=== PATIENT | male | born 1950 | race Caucasian/White ===

== ENCOUNTER 2023-07-29 20:13 | Emergency (ER) | payer MEDICARE, OTHER, SELFPAY ==
[2023-07-29 20:13] VITALS: BMI 32.0
[2023-07-29 20:29] VITALS: BP 166/97
[2023-07-29 20:41] LABS: % Basophils 0.5 % (0-2); % Eosinophils 1.3 % (0-6); % Immature Granulocytes 0.4 % (0-0.5); % Lymphocytes 23.8 % (20.5-51.1); % Monocytes 7.9 % (1.7-9.3); % Neutrophils 66.1 % (42.2-75.2); Absolute Eosinophils 0.1 10^3/uL (0-0.7); Absolute Monocytes 0.7 10^3/uL (0.1-0.6); Absolute Neutrophils 5.6 10^3/uL (1.4-6.5); Hematocrit 42.3 % (39.0-52.0); Hemoglobin 14.8 g/dL (13.0-18.0); Mean Corpuscular Hgb 32.3 pg (27.0-31.0); Mean Corpuscular Volume 92.4 fL (80.0-94.0); Mean Platelet Volume 9.4 fL (7.4-10.4); Nucleated Red Blood Cells % 0 % (-); Platelet Count 171 10^3/uL (130-400); Red Blood Cell Count 4.58 10^6/uL (4.70-6.10); Red Cell Dist. Width 13.1 % (11.5-14.5); White Blood Cell Count 8.4 10^3/uL (4.8-10.8)
[2023-07-29 21:03] LABS: ALT (SGPT) 26 U/L (0-50); Alkaline Phosphatase 50 U/L (38-126); Blood Urea Nitrogen 21 mg/dl (9-20); Calcium 9.5 mg/dl (8.4-10.2); Carbon Dioxide 30 mmol/L (22-30); Chloride 98 mmol/L (98-107); Glucose 124 mg/dl (70-99); Potassium 3.9 mmol/L (3.5-5.1); Sodium 136 mmol/L (135-145); Total Bilirubin 0.8 mg/dl (0.2-1.3); Total Protein 6.3 g/dl (6.3-8.2); eGFR > 60.00
[2023-07-29 21:05] LABS: AST (SGOT) 25 U/L (17-59)
[2023-07-29 21:06] LABS: Troponin I < 0.012 ng/ml
[2023-07-29 23:32] VITALS: BP 159/81
[2023-07-30 00:26] LABS: Troponin I < 0.012 ng/ml
--- NOTE | 2023-07-30 02:00 | ED.GENMED ---
History of Present Illness
General
Chief Complaint: Chest Problem
Source: patient and spouse
Exam Limitations: none
Time Seen by Provider: 07/29/23 23:31
Nursing documentation reviewed up to this point in time: agreed with
Travel History
Have you had any contact with someone who has COVID-19?: No
Do you have any symptoms of coronavirus? Fever > 100 degrees, chills, cough, shortness of breath, sore throat, loss of taste or smell, muscle aches, or headache?: No
History of Present Illness
History of Present Illness:
73-year-old male with medical history of hypertension hyperlipidemia, thyroid disorder presenting to the emergency department today with concerns of intermittent palpitation chest discomfort over the past few days. Denies any specific inciting
events or specific known palliation or provocation. Denies any ongoing symptoms during my assessment. Denies nausea vomiting diaphoresis.
Past History
Past History
ED Past Medical History: Asthma, HTN, Hypercholesterolemia, Hypothyroidism and Other (Budging disc, Diverticulitis, Renal calculis, UTI)
ED Past Surgical History: Orthopedic (L Knee surgery Apr 2014, lumbar laminectomy, Right knee replacement, Cl lateral carpal tunnel release) and Other (Back surgery)
Social History
Tobacco: Non-smoker
Alcohol: Daily (Beer 2)
Drug: None
Personal:
Living: with family
Family History
Family History: Other
Review of Systems
Review of Systems
Allergies reviewed?: Yes
All Other Systems: ROS reviewed and negative except as documented in HPI and ROS
Phy Exam
Physical Exam
Physical Exam:
GENERAL: Alert , in no apparent distress
EYE: pupils equal and reactive
NECK: Supple, no significant adenopathy.
ENT: o/p clr, mmm.
CARDIAC: Regular rate and rhythm .
LUNGS: Clear breath sounds bilaterally, no acute respiratory distress, no wheezes/rales/rhonchi
ABDOMEN: Soft, without focal tenderness, no r/g, no cvat
NEUROLOGICAL: Alert and oriented, no focal neuro deficits
SKIN: Warm and dry, skin intact.
MUSCULOSKELETAL: No edema, well perfused.
PSYCH: Normal and appropriate interaction.
Course
Orders/Labs/Results
Orders:
Orders
07/29/23 20:18
ECG [Electrocardiogram (*1)] Urgent
Reason for Study: Palpitations
Cardiology Consult: Unknown
EKG- Treatment ONCE
07/29/23 20:36
Complete Blood Count/With Diff Urgent
Comprehensive Metabolic Panel Urgent
Troponin I Urgent
07/29/23 23:31
EKG [Electrocardiogram (*1)] Urgent
Reason for Study: Chest Pain
EKG- Treatment ONCE
07/29/23 23:46
Troponin I Urgent
07/30/23 00:30
Chest [CR Chest - 2 Views ] Urgent
Comment:
Reason For Exam: cp
Abnormal Lab Results
07/29/23
20:36
RBC 4.58 L 10^6/uL
(4.70-6.10)
MCH 32.3 H pg
(27.0-31.0)
Absolute Monos (auto) 0.7 H 10^3/uL
(0.1-0.6)
BUN 21 H mg/dl
(9-20)
Glucose 124 H mg/dl
(70-99)
07/29/23 20:36
07/29/23 20:36
Vital Signs
Initial and Last Documented VS:
Initial Vital Signs
Temp Pulse Resp BP Pulse Ox
98.2 F 73 16 166/97 99
07/29/23 20:29 07/29/23 20:29 07/29/23 20:29 07/29/23 20:29 07/29/23 20:29
Last Documented Vital Signs
Temp Pulse Resp BP Pulse Ox
98.2 F 66 17 159/81 96
07/29/23 20:29 07/29/23 23:45 07/29/23 23:45 07/29/23 23:32 07/29/23 23:45
MDM/Problems Addressed
MDM/Problems Addressed:
73-year-old male presenting to the emergency department today with concerns of intermittent chest pain and palpitations over the past few days. No ongoing symptoms during my assessment. Initial blood pressure slightly elevated but otherwise vital
signs are normal. This improved throughout ER stay. Labs unremarkable troponin negative x 2 normal EKG x 2 normal chest x-ray. No signs of emergent pathology low risk for ACS. Patient stable for outpatient cardiology follow-up. Return
precautions given.
No specific risk factors for PE.
*Critical Care Note
Total Time (30-74mins, 75-104mins- exclusive of procedures): Not Applicable
ED Attending Note
-
Portions of this chart may have been created with voice recognition software.� Occasional wrong word or��sound alike� substitutions may have occurred due to the inherent limitations of voice recognition software.
Discharge Plan
Departure
Patient Disposition: Home (Routine Discharge)
Date of Disposition: 07/30/23
Time of Disposition: 02:01
Patient with high blood pressure during this ER visit?: No
Condition: Good
Covid-19: Not Applicable
Discharge Problem:
Chest pain
Instructions: Chest Pain CBC Follow Up
Prescriptions:
No Action
levothyroxine 125 MCG tablet
125 mcg PO DAILY
tamsulosin 0.4 MG capsule
0.4 mg PO DAILY Qty: 30 0RF
Patient Comments:
not started
metaxalone [Skelaxin] 800 MG tablet
800 mg PO PRN PRN (Reason: muscle spasm)
multivitamin with folic acid [Tab-A-Aliza] 1 TABLET tablet
1 tab PO DAILY
Albuterol Sulfate Hfa
2 puff inhalation Q4H PRN (Reason: sob)
FLOVENT 110mcg:
2 puff inhalation BID
Fish Oil 1,200 mg Fish Oil
21 tab PO DAILY
acetaminophen 325 MG tablet
650 mg PO QID PRN (Reason: pain)
meloxicam 7.5 MG tablet
7.5 mg PO DAILY PRN (Reason: pain)
doxycycline hyclate 100 mg capsule
100 mg PO BID Qty: 19 0RF
prednisone 20 mg tablet
40 mg PO DAILY Qty: 8 0RF
benzonatate 200 mg capsule
200 mg PO BID PRN (Reason: Cough) Qty: 10 0RF
Referrals:
Fatuma Contreras MD [Family Provider] -
Activity Restrictions/Additional Instructions:
You came to the emergency department today with concerns of chest discomfort. Please follow closely with cardiology. Return to the emergency department for any worsening, new or concerning symptoms.
Interventions
Interventions:
*Risk Screen - Suicide Last Done: 07/29/23 20:29
*General Assessment Last Done: 07/29/23 20:29
*Neglect/Abuse Screening Last Done: 07/29/23 20:29
*ED COVID-19 Vaccine History Last Done: 07/29/23 20:29
== END 2023-07-30 02:48 | disposition home or self-care (01) ==
LOC: EMR 20:13
PROVIDERS: Physician Assistant; Student in an Organized Health Care Education/Training Program; EMERGENCY PHYSICIAN Emergency Medicine; FAMILY PHYSICIAN Family Medicine
DX: R07.89 Other chest pain (principal); R00.2 Palpitations; I10 Essential (primary) hypertension; E78.00 Pure hypercholesterolemia, unspecified; E03.9 Hypothyroidism, unspecified; J45.909 Unspecified asthma, uncomplicated; Z87.440 Personal history of urinary (tract) infections; Z96.651 Presence of right artificial knee joint
CPT/HCPCS: 99283; 71046; 80053; 84484; 85025; 93005

== ENCOUNTER → 2023-08-15 09:08 | Outpatient (REF) | payer MEDICARE, OTHER, SELFPAY | LOC: RCS 09:08 | PROVIDERS: ATTENDING PHYSICIAN Internal Medicine Cardiovascular Disease; FAMILY PHYSICIAN Family Medicine | DX: R00.2 Palpitations (principal) | CPT/HCPCS: 93225; 93226 ==

== ENCOUNTER → 2023-08-21 10:08 | Outpatient (REF) | payer MEDICARE, OTHER, SELFPAY | LOC: DHCBC HW 10:08 | PROVIDERS: ATTENDING PHYSICIAN Internal Medicine Cardiovascular Disease; FAMILY PHYSICIAN Family Medicine | DX: R00.2 Palpitations (principal) | CPT/HCPCS: 93306 ==

== ENCOUNTER → 2023-09-22 12:41 | Outpatient (REF) | payer MEDICARE, OTHER, SELFPAY | LOC: SDSPAT 12:41 | PROVIDERS: ATTENDING PHYSICIAN Surgery; FAMILY PHYSICIAN Family Medicine | DX: K42.9 Umbilical hernia without obstruction or gangrene (principal) | CPT/HCPCS: 93005 ==

== ENCOUNTER 2023-10-05 06:14 | Day surgery (SDC) | payer MEDICARE, OTHER, SELFPAY ==
[2023-09-22 13:36] VITALS: BMI 32.4
--- NOTE | 2023-09-29 14:09 | PTCARENOTE ---
Patients 09/21 EKG abnormal- reviewed by Dr. Araiza- no additional interventions required
[2023-10-05] VITALS (10 sets, daily range): BP systolic 97–160; BP diastolic 50–85; BMI 32.4
--- NOTE | 2023-10-05 11:28 | W.SUR.PREOP ---
Pre-Operative Surgical Note
-
I have examined this patient prior to the performance of the scheduled procedure.
The patient's condition is unchanged from the time of the current History and
Physical and the patient is able to undergo the scheduled procedure.
[2023-10-05] MEDS: TYLENOL 1000 MG PO (11:35)
[2023-10-05] MEDS: NORMOSOL-R 1000 IV (11:36)
--- NOTE | 2023-10-05 13:42 | W.IMMPOSTOP ---
Surgical Immed Post Op Note
-
Primary Surgeon: Juan Daniel Cantor MD
Assisting Surgeon: None
Pre-op Diagnosis: Umbilical hernia
Post-op Diagnosis: Incarcerated umbilical hernia
Procedure Performed: Robotic umbilical hernia repair with mesh (YASEMIN approach)
Anesthesia Type: General
Specimen / Cultures: None
Estimated Blood Loss: 3 cc
Complications: None
Operative Findings: 1.5 cm umbilical hernia containing incarcerated omentum that was lysed free. Tip of the omentum appeared and necrotic and was resected. Hernia defect closed with #1 stratafix and reinforced with an 11 x 11 cm Bard soft mesh.
--- NOTE | 2023-10-05 13:44 | OR.RPT ---
Operative Report
Operative Report
Patient Name: Juanito Wallace
: 1950
Date of Operation: 10/05/2023
Preoperative Diagnosis: Umbilical hernia
Postoperative Diagnosis: Same
Procedure(s):
Robotic umbilical hernia repair with mesh (YASEMIN approach)
Surgeon(s):
Dr. Cantor
Assitant(s):
LORENZO Diallo
LILY Rowland
Anesthesia: General
Estimated Blood Loss: 3 cc
Urine Output: None
Drains/Lines/Implants:
11 x 11 cm Bard soft mesh
Specimens:
None
HPI/Surgical Indications:
This is a 73-year-old male who was seen in my office for a symptomatic umbilical bulge and diagnosed with an umbilical hernia. Risks/Benefits/Alternatives were discussed at length, and the patient agreed to proceed with surgery.
Operative Findings: 1.5 cm umbilical hernia containing incarcerated omentum that was lysed free. Tip of the omentum appeared and necrotic and was resected. Hernia defect closed with #1 stratafix and reinforced with an 11 x 11 cm Bard soft mesh.
Procedure Description:
The patient was brought to the Operating Room and placed in the supine position with the arms tucked. IV antibiotics were infused and Venodyne stockings placed. Following uneventful induction of general endotracheal anesthesia, an orogastric tube
were placed. The abdomen was prepped and draped in the usual sterile fashion. The abdomen was entered using a Veress technique which required 1 pass, pneumoperitoneum to 15 mmHg was obtained without difficulty. An 8mm trochar was passed through
the abdominal wall roughly 20 cm laterally from the defect in the left upper quadrant, we then confirmed the no inadvertent injury and made while passing the trocar or Veress needle. We then placed two additional 8 mm ports in the left lower
quadrant. We could readily appreciate the umbilical defect with incarcerated omentum. Bilateral tap blocks were performed. The robot was docked. We then introduced our prograsper through the inferior/left hand port and a monopolar scissors
through the superior port. We then turned our attention to the hernia which had incarcerated omentum. This was carefully lysed free. The tip of the omental pedicle was necrotic, so was divided and passed off the field. We then began taking a
flap down roughly 6 cm away from the defect and roughly 12 cm in length taking care to stay in the pretransversalis plane. The preperitoneal fat was taken down off of the posterior rectus sheath both superior and inferior to the hernia defect such
that we were able to get our 'volcano sign'. We then worked on reducing the defect which contained preperitoneal fat and continued our dissection out laterally for an additional 6 to 7 cm. Once our flap was created we introduced a ruler and a #1
Stratafix. The main hernia defect measured 1.5 cm. The pocket measured 12 x 12 cm. I had my research lab assistant cut a 11 x 11 cm piece of Bard soft mesh marked with 0 Vicryl suture at the center, as I closed the umbilical defect. The mesh was then sutured
to the posterior rectus sheath in 4 quadrants with 2-0 vircyls to ensure good apposition. A 2-0 Monocryl was introduced which was used to close our flap. A suction cannula was used to decompress the flap space prior to final closure of the flap.
All sutures were removed. The robot was undocked. The ports were removed under direct visualization and pneumoperitoneum was evacuated. The port sites were closed with 4-0 Monocryl followed by Dermabond. Counts were correct and overall, the
patient tolerated the procedure well and was taken to the Recovery Room postoperatively in stable condition.
I was the attending physician and performed the procedure with assistance from the [facility] above. I was present for all portions of the case except for skin closure.
Juan Daniel Cantor MD
[2023-10-05] MEDS: DILAUDID 0.25 MG IV (14:35)
[2023-10-05] MEDS: DILAUDID 0.5 MG IV (14:44)
[2023-10-05] MEDS: MOTRIN 600 MG PO (15:46)
== END 2023-10-05 16:30 | disposition home or self-care (01) ==
LOC: SDS 06:14
PROVIDERS: ATTENDING PHYSICIAN Surgery; FAMILY PHYSICIAN Family Medicine
DX: K42.0 Umbilical hernia with obstruction, without gangrene (principal)
CPT/HCPCS: 49592; C1781

== ENCOUNTER → 2024-12-10 07:58 | Outpatient (REF) | payer MEDICARE, OTHER, SELFPAY | LOC: RCS 07:58 | PROVIDERS: ATTENDING PHYSICIAN Student in an Organized Health Care Education/Training Program; FAMILY PHYSICIAN Family Medicine | DX: I71.21 Aneurysm of the ascending aorta, without rupture (principal) | CPT/HCPCS: 93306 ==